=== PATIENT | female | born 1940 | race Asian ===

== ENCOUNTER → 2018-01-03 | Outpatient (CLI) | payer MEDICARE ==
[2018-01-03 10:57] LABS: ABG PCO2 37 mmHg (41-51); ABG PH 7.49 (7.31-7.41); ABG PO2 97 mmHg (80-105)
[2018-01-03 10:58] LABS: ABG HCO3 28 mmol/L (23-28)
== END ==
LOC: RESP 09:38
PROVIDERS: ATTEND Internal Medicine Pulmonary Disease
DX: R91.1 Solitary pulmonary nodule (principal)
CPT/HCPCS: 36415; 82805; 94060; 94727; 94729

== ENCOUNTER 2018-02-15 06:00 | Inpatient (IN) | payer MEDICARE ==
[2018-02-14 10:54] LABS: BASOPHILS % 0.4 % (0.0-1.0); EOSINOPHILS % 0.5 % (0.0-6.0); HEMATOCRIT 37.4 % (34.2-44.1); HEMOGLOBIN 12.6 g/dL (12.0-16.0); LYMPHOCYTES # (AUTO) 1.7 (1.0-3.2); MEAN CORPUSCULAR HGB CONC 33.7 g/dL (31-35); MEAN CORPUSCULAR VOLUME 92.1 fL (81-99); MONOCYTES # (AUTO) 0.6 (0.2-0.8); MONOCYTES % 7.2 % (4.4-11.3); NEUTROPHILS # (AUTO) 5.4 (2.1-6.9); NEUTROPHILS % 69.6 % (38.7-80.0); PLATELET COUNT 297 x10e3/uL (140-360); RED BLOOD COUNT 4.06 x10e6/uL (3.6-5.1); RED CELL DISTRIBUTION WIDTH 11.8 % (11.7-14.4)
[2018-02-14 11:30] LABS: ANION GAP 15.3 mmol/L (8-16); BLOOD UREA NITROGEN 13 mg/dL (7-26); BUN/CREATININE RATIO 18 (6-25); CALCIUM 9.6 mg/dL (8.4-10.2); CARBON DIOXIDE 27 mmol/L (22-29); CHLORIDE 93 mmol/L (98-107); CREATININE, SERUM 0.74 mg/dL (0.57-1.11); EST GLOMERULAR FILTRATION RATE > 60 ML/MIN (60-); GLUCOSE 121 mg/dL (74-118); POTASSIUM 4.3 mmol/L (3.5-5.1); SODIUM 131 mmol/L (136-145)
--- NOTE | 2018-02-14 11:46 | Diagnostic Imaging Report ---
EXAMINATION: PA and lateral views of the chest. COMPARISON: None CLINICAL HISTORY: Preoperative study for hip replacement DISCUSSION: Lungs are well-inflated area no focal airspace consolidation, pleural effusion, or pneumothorax. Tortuous thoracic aorta with atherosclerotic calcification. Normal heart size. No pulmonary edema. No acute osseous abnormality. IMPRESSION: No acute cardiopulmonary abnormalities. Signed by: Dr. Tushar Connolly M.D. on 02/14/2018 11:43 AM
[~2018-02-15] VITALS: Ht 157.5 cm; Wt 61.9 kg
[~2018-02-15 06:00] MED LIST: CALTRATE PO; COQ-10 PO; FISH OIL PO; GERITOL COMPLE1 EACH PO; LEVOTHYROXINE75 MCG PO; LOSARTAN POTAS100 MG PO; METFORMIN HCL500 MG PO; METOPROLOL SUCC25 MG PO; OMEPRAZOLE40 MG PO; SIMVASTATIN20 MG PO
[2018-02-15] MEDS ORDERED: DEXAMETHASONE SOD PHOS 10 MG/1 ML VIAL ONE (06:23)
[2018-02-15] MEDS ORDERED: GABAPENTIN 300 MG CAP ONE (06:23)
[2018-02-15] MEDS ORDERED: CEFAZOLIN SOD 2 GM/D5W 50ML 50 ML IV ONE (06:23)
[2018-02-15] MEDS ORDERED: CELECOXIB 200 MG CAP ONE (06:23)
[2018-02-15] MEDS ORDERED: ROPIVACAINE 246.25 MG, EPINEPHRINE HCL 1:1000 0.5 MG, CLONIDINE HCL 0.08 MG, KETOROLAC ... INJ ONE ×5 (07:30)
[2018-02-15] MEDS ORDERED: TRANEXAMIC ACID 1,000 MG/10 ML ML ONE (07:51)
[2018-02-15] MEDS ORDERED: BACITRACIN 50,000 UNIT VIAL ONE (07:52)
[2018-02-15] MEDS ORDERED: BUPIVACAINE 7.5MG/ML /DEXTROSE 82.5MG/ML 2 ML AMP INJ ONE (08:48)
[2018-02-15] MEDS ORDERED: LIDOCAINE HCL 2% LOCAL 20 ML VIAL ONE (08:52)
[2018-02-15] MEDS: SODIUM CHLORIDE 0.9% 1000ML 1,000 ML IV SCH ×2 (09:57→19:57)
[2018-02-15] MEDS ORDERED: DOCUSATE SODIUM 100 MG CAP PO PRN (10:00)
[2018-02-15] MEDS ORDERED: DIPHENHYDRAMINE HCL INJ 50 MG/ML VIAL IM/IV PRN (10:00)
[2018-02-15] MEDS ORDERED: HYDROCODONE/APAP 7.5MG-325MG 1 EA TAB PO PRN (10:00)
[2018-02-15] MEDS ORDERED: KETOROLAC TROMETHAMINE 30 MG/ML VIAL IV PRN (10:00)
[2018-02-15] MEDS ORDERED: HYDROCODONE/APAP 5MG-325MG TAB PO PRN (10:00)
[2018-02-15] MEDS ORDERED: ACETAMINOPHEN 650 MG SUPP PR PRN (10:00)
[2018-02-15] MEDS ORDERED: PROMETHAZINE HCL (IM) 25 MG/ML VIAL IM PRN (10:00)
[2018-02-15] MEDS ORDERED: ONDANSETRON HCL INJ 2 MG/ML VIAL IV PRN (10:00)
[2018-02-15 10:44] VITALS: BP 159/67
[2018-02-15 11:00] VITALS: BP 159/67
--- NOTE | 2018-02-15 11:30 | Diagnostic Imaging Report ---
PROCEDURE:X-RAY PELVIS, AP VIEW COMPARISON:None. INDICATIONS:POST OP TOTAL HIP SURGERY FINDINGS: Left hip replacement with acetabular cup and femoral ball in good position. Air and surgical geetha are noted. The left hip joint space narrowing is noted. CONCLUSION: Status post left total hip replacement. Ricci Blanca D.O. Dictated by: Ricci Blanca D.O. on 02/15/2018 at 11:38 Electronically approved by: Ricci Blanca D.O. on 02/15/2018 at 11:38
[2018-02-15] MEDS: ACETAMINOPHEN 1000 MG/100 ML IV SCH ×2 (13:41→18:14)
[2018-02-15] MEDS ORDERED: CEFAZOLIN SOD 1 GM/D5W 50ML 50 ML IV SCH (14:00)
--- NOTE | 2018-02-15 14:29 | Operative Report ---
DATE OF PROCEDURE: February 15, 2018 HEALTH DIRECTOR: Devan Dotson PA-C The patient was brought to the operating room for induction of anesthesia. Throughout this case, my PA's assistance was necessary for retraction of soft tissue and positioning of the extremity. This allows for efficient and technically successful execution of the operation and is considered medically necessary. PREOPERATIVE DIAGNOSIS: Osteoarthritis, left hip. POSTOPERATIVE DIAGNOSIS: Osteoarthritis, left hip. PROCEDURE: Left total hip arthroplasty. INDICATIONS: The patient is a 77-year-old lady who has advanced osteoarthritis in her left hip. She has failed conservative management and would like to proceed with a left total hip replacement. The risks and benefits of the surgery have been explained. She states she understands and wishes to proceed. DESCRIPTION OF PROCEDURE: The patient was brought to the operating room and placed under spinal anesthetic. She received prophylactic antibiotics and tranexamic acid in the holding area. She was positioned in the right lateral decubitus position. Her left hip was prepped and draped in a sterile manner. A preoperative time out was performed. A posterior approach was made to the left hip. Hemostasis was obtained with electrocautery. Care was taken to avoid injury to the sciatic nerve. A Charnley self-retraining retractor was placed. The posterior capsule was exposed and released. The hip was dislocated, and an oscillating saw was used to resect the femoral head. Complete loss of articular cartilage in the dome of the femoral head was noted. Acetabular retractors were placed. A [employer] system was used throughout the case. The true floor of the acetabulum was established. The socket was sequentially reamed up to 53 mm. This accomplished bleeding hemispherical cancellous bone. Two subchondral cysts were debrided with a curved curet. The hip was thoroughly irrigated with a shower-tip pulsatile lavage. A [employer] OsseoTi socket with a 54 mm outer diameter was impacted into place. Excellent fixation was obtained. The hip was further irrigated, and a highly crosslink polyethylene liner with no posterior elevation and a 36 mm inner diameter was seated. Care was taken to make sure that there was no evidence of soft-tissue interposition. A portion of a 100-mL premixed pericapsular injection was placed around the soft tissue. The socket was packed with moistly soaked lap sponge, and attention was directed towards the proximal femur. A box cutting osteotome and taper pin reamer were used to establish entry to the femoral canal. The [employer] Taperloc broaches were impacted. A size 8 stem had good canal fill and stability. Trial reductions were performed. The patient was noted to have excellent stability and soft-tissue balancing. The trial implants were removed. The remainder of the injection was placed around the more superficial tissue. The implants were seated. A 36-mm ceramic head was seated. A final reduction was performed. The hip was further irrigated. The posterior capsule was carefully repaired with interrupted #2 Ethibond. The gluteal fascia was closed with #2 Ethibond. The skin was closed with subcuticular Vicryl and geetha. A sterile Aquacel bandage was applied. The patient was transported to the recovery room in stable condition. Blood loss was approximately 50 mL. All needle and sponge counts were correct. Job#: [id number]
[2018-02-15 16:00] VITALS: BP 128/84
[2018-02-15] MEDS: CEFAZOLIN SOD 1 GM VIAL IV SCH (16:03)
[2018-02-15] MEDS ORDERED: CELECOXIB 100 MG CAP PO SCH (17:00)
[2018-02-15] MEDS: ASPIRIN 325 MG TAB PO SCH (17:30)
[2018-02-15] MEDS: CELECOXIB 200 MG CAP PO SCH (17:30)
[2018-02-15] MEDS ORDERED: EPHEDRINE SULFATE INJ 50 MG/10 ML SYR ONE (17:38)
[2018-02-15] MEDS ORDERED: FENTANYL CITRATE/PF 100MCG/2 ML INJ ONE (18:06)
[2018-02-15] MEDS ORDERED: MIDAZOLAM HCL 2 MG/2 ML VIAL ONE (18:06)
[2018-02-15 20:00] VITALS: BP 125/68
[2018-02-15] MEDS ORDERED: ZOLPIDEM TARTRATE 5 MG TAB PO PRN (21:00)
[2018-02-15] MEDS ORDERED: SIMVASTATIN 20 MG TAB PO SCH (21:00)
[2018-02-15 21:07] VITALS: BP 125/68
[2018-02-15] MEDS: METFORMIN HCL 500 MG TAB PO SCH (21:46)
[2018-02-16] VITALS: BP 140/65
[2018-02-16] MEDS: ACETAMINOPHEN 1000 MG/100 ML IV SCH ×2 (00:45→06:39)
[2018-02-16] MEDS: CEFAZOLIN SOD 1 GM VIAL IV SCH ×2 (01:00→08:38)
[2018-02-16 04:00] VITALS: BP 159/70
[2018-02-16] MEDS: SODIUM CHLORIDE 0.9% 1000ML 1,000 ML IV SCH (05:57)
[2018-02-16] MEDS ORDERED: LEVOTHYROXINE SODIUM 75 MCG TAB PO SCH (06:00)
[2018-02-16 06:02] LABS: HEMATOCRIT 30.8 % (34.2-44.1); HEMOGLOBIN 10.6 g/dL (12.0-16.0)
--- NOTE | 2018-02-16 07:19 | Consultation ---
DATE OF CONSULTATION: This is a patient of Dr. Haja Hitchcock who comes in for left hip pain, status post left hip arthroplasty. Medical consultation for thyroid disease, high blood pressure and diabetes. PAST MEDICAL HISTORY: As mentioned above. SOCIAL HISTORY: No ETOH. No drug abuse. Never a smoker. FAMILY HISTORY: Noncontributory. CURRENT MEDICATIONS 1. Levothyroxine 75 mcg. 2. Losartan 100 mg. 3. Metformin 500 mg. 4. Metoprolol 25 mg twice a day. 5. Omeprazole. 6. Mnze-xhr-soimdol vitamins. ALLERGIES: ALLERGIC TO IODINE AND IODINE PRODUCTS. REVIEW OF SYSTEMS: Negative for chest pain or shortness of breath. No nausea, vomiting or diarrhea. No constipation or rectal bleeding. Left hip pain is controlled by medications at this time. PHYSICAL EXAMINATION GENERAL: The patient is alert and oriented times 3. HEENT: Normocephalic and atraumatic. Pupils equal, round and reactive to light and accommodation. CV: S1 and S2 normal. Regular rate and rhythm. ABDOMEN: Nontender and nondistended. EXTREMITIES: Wound of the hip normal. Clean and dry. ASSESSMENT: Hip osteoarthritis, status post left hip arthroplasty. The patient is doing well. Will restart her home medications for her thyroid condition, for diabetes and also for hypertension. The patient has had extensive cardiac clearance. The patient was cleared for hip surgery. The patient's stress test was normal. Echo showed an atrial fibrillation of about 56%. Will watch her fluid intake, and also watch her electrolytes closely. Blood pressure will be monitored, and also diabetes will be controlled with insulin sliding scale. Postoperative anticoagulation for deep venous thrombosis prophylaxis has been instituted. Further recommendations per clinical course. Will continue to monitor the patient along with ortho. Job#: [id number] PEG
[2018-02-16] MEDS: ASPIRIN 325 MG TAB PO SCH (08:38)
[2018-02-16] MEDS: CELECOXIB 200 MG CAP PO SCH (08:38)
[2018-02-16] MEDS: METFORMIN HCL 500 MG TAB PO SCH (08:38)
[2018-02-16] MEDS ORDERED: METOPROLOL SUCCINATE 25 MG TAB XL PO SCH (09:00)
[2018-02-16] MEDS ORDERED: PANTOPRAZOLE SOD 40 MG TABEC PO SCH (09:00)
[2018-02-16] MEDS ORDERED: LOSARTAN POTASSIUM 100 MG TAB PO SCH (09:00)
[2018-02-16] MEDS ORDERED: ACETAMINOPHEN 1000 MG/100 ML IV PRN (10:00)
[2018-02-16 10:02] VITALS: BP 157/82
[2018-02-16] MEDS ORDERED: LOVENOX40 MG/0.4 SC (12:01)
[2018-02-16] MEDS ORDERED: ENOXAPARIN SOD INJ 40 MG/0.4 ML SYR SC SCH (17:00)
== END 2018-02-16 14:06 | disposition home health service (06) | DRG 470 ==
LOC: OR 06:00 → PACU V 09:59 → MED/SURG 10:48
PROVIDERS: ADMIT Specialist; ATTEND Specialist
PROC: 0SRB04A Replacement of Left Hip Joint with Ceramic on Polyethylene Synthetic Substitute, Uncemented, Open Approach (ICD-10-PCS; principal; 2018-02-15 08:30)
DX: M16.0 Bilateral primary osteoarthritis of hip (principal); I10 Essential (primary) hypertension; E11.9 Type 2 diabetes mellitus without complications; Z79.4 Long term (current) use of insulin
CPT/HCPCS: 36415; 71046; 72170; 80048; 82948; 85014; 85018; 85025; 86850; 86900; 86920; J0171; J0690; J1100; J1650; J1885; J2001; J2250; J2405; J2795; J7030

== ENCOUNTER 2018-02-22 15:08 | Inpatient (IN) | payer MEDICARE, OTHER ==
[~2018-02-22] VITALS: Ht 157.5 cm; Wt 55.8 kg
[~2018-02-22 15:08] MED LIST changes: +LOVENOX40 MG/0.4 SC
[2018-02-22] MEDS ORDERED: ONDANSETRON HCL 4 MG ORAL DISINTEGRATING TAB ONE (15:21)
[2018-02-22] MEDS ORDERED: ONDANSETRON HCL 4 MG ORAL DISINTEGRATING TAB PO ONE ×2 (15:30→16:00)
[2018-02-22 17:07] LABS: BASOPHILS % 0.3 % (0.0-1.0); EOSINOPHILS % 0.2 % (0.0-6.0); HEMATOCRIT 31.2 % (34.2-44.1); LYMPHOCYTES % 15.1 % (18.0-39.1); MEAN CORPUSCULAR HEMOGLOBIN 30.8 pg (28-32); MEAN CORPUSCULAR HGB CONC 35.3 g/dL (31-35); MEAN CORPUSCULAR VOLUME 87.4 fL (81-99); MONOCYTES # (AUTO) 0.6 (0.2-0.8); MONOCYTES % 8.6 % (4.4-11.3); NEUTROPHILS # (AUTO) 4.9 (2.1-6.9); NEUTROPHILS % 74.7 % (38.7-80.0); PLATELET COUNT 385 x10e3/uL (140-360); RED BLOOD COUNT 3.57 x10e6/uL (3.6-5.1); RED CELL DISTRIBUTION WIDTH 11.3 % (11.7-14.4)
[2018-02-22 17:16] LABS: BILIRUBIN,URINE NEGATIVE (NEGATIVE); CLARITY,URINE SL CLOUDY (CLEAR); COLOR,URINE YELLOW (YELLOW); KETONES,URINE 1+ (NEGATIVE); LEUKOCYTE ESTERASE ,URINE NEGATIVE (NEGATIVE); NITRITE,URINE NEGATIVE (NEGATIVE); PROTEIN,URINE DIPSTICK 2+ (NEGATIVE); URINE UROBILINOGEN 1 mg/dL (0.2 - 1)
[2018-02-22 17:29] LABS: ALANINE AMINOTRANSFERASE 31 IU/L (0-55); ALBUMIN 3.7 g/dL (3.5-5.0); ALKALINE PHOSPHATASE 105 IU/L (40-150); ANION GAP 16.8 mmol/L (8-16); BLOOD UREA NITROGEN 9 mg/dL (7-26); BUN/CREATININE RATIO 14 (6-25); CALCIUM 9.4 mg/dL (8.4-10.2); CARBON DIOXIDE 24 mmol/L (22-29); CHLORIDE 79 mmol/L (98-107); CREATININE, SERUM 0.65 mg/dL (0.57-1.11); EST GLOMERULAR FILTRATION RATE > 60 ML/MIN (60-); GLUCOSE 149 mg/dL (74-118); LIPASE 8 U/L (8-78); POTASSIUM 3.8 mmol/L (3.5-5.1)
[2018-02-22 17:31] LABS: SODIUM 116 mmol/L (136-145)
[2018-02-22 17:36] LABS: AMORPHOUS SEDIMENT,URINE MANY (FEW); BACTERIA,URINE MODERATE /HPF; RBC,URINE 0-5 /HPF (0-5)
--- NOTE | 2018-02-22 17:38 | Diagnostic Imaging Report ---
Exam: Abdominal radiograph supine and upright History: Abdominal pain, nausea and vomiting Comparison: None. Findings: Mildly dilated loops of small bowel within the abdomen measuring up to 3.3 cm. Air present distally throughout the colon. Impression: Mildly dilated loops of small bowel. Signed by: Dr. Oleg Mackay M.D. on 02/22/2018 5:35 PM
[2018-02-22] MEDS ORDERED: SODIUM CHLORIDE 0.9% 1000ML 1,000 ML IV SCH (17:45)
[2018-02-22] MEDS ORDERED: DEXAMETHASONE SOD PHOS 10 MG/1 ML VIAL IV ONE (18:45)
[2018-02-22] MEDS ORDERED: DIPHENHYDRAMINE HCL INJ 50 MG/ML VIAL IV ONE (18:45)
[2018-02-22] MEDS ORDERED: METOCLOPRAMIDE HCL 10 MG/2ML VIAL IV ONE (18:45)
[2018-02-22] MEDS ORDERED: ZOFRAN ODT4 MG SL (19:31)
[2018-02-22] MEDS ORDERED: NORCO 7.5-3251 EACH PO (19:31)
--- NOTE | 2018-02-22 19:33 | Diagnostic Imaging Report ---
EXAMINATION: Head CT without contrast. HISTORY:Headache and loss of vision in right eye. COMPARISON:None. TECHNIQUE: Multidetector axial images were obtained from the foramen magnum to the vertex without contrast. The images were reconstructed using brain and bone algorithms. Thin section brain images were reformatted into coronal and sagittal planes. Dose modulation, iterative reconstruction, and/or weight based adjustment of the mA/kV was utilized to reduce the radiation dose to as low as reasonably achievable. Intravenous contrast: None IMAGE QUALITY: Acceptable. FINDINGS: Skull/scalp: No lytic or blastic. lesions. No surgical changes. Parenchyma: Nonspecific bilateral frontoparietal patchy white matter hypodensity are likely related to small vessel ischemic changes. No acute hemorrhage, mass or acute major vascular territorial infarct. Arteries: No density suggestive of thrombosis. Dural sinuses: No abnormal density suggestive of thrombosis. Ventricles: Mild compensated dilatation due to volume loss. No hydrocephalus. Extra-axial spaces: No abnormal density. Brain volume: Normal for age. Craniocervical junction: No mass, Chiari malformation, or basilar invagination. Sella: No mass. Paranasal/mastoid sinuses: Imaged portions unremarkable. IMPRESSION: 1. No acute intracranial abnormality, particularly no acute hemorrhage, mass or acute major vascular territorial infarct. 2. Moderate supratentorial white matter microvascular ischemic changes. 3. Generalized age-related cerebral volume loss. Signed by: Dr. Alisha Osman M.D. on 02/22/2018 7:30 PM
[2018-02-22] MEDS ORDERED: SODIUM CHLORIDE 0.9% 1000ML 1,000 ML IV STA (19:48)
[2018-02-22] MEDS ORDERED: MORPHINE SULFATE 2 MG/ML SYR IV PRN (20:30)
[2018-02-22] MEDS ORDERED: DIPHENHYDRAMINE HCL INJ 50 MG/ML VIAL IV PRN (20:30)
[2018-02-22] MEDS ORDERED: ONDANSETRON HCL INJ 2 MG/ML VIAL IV PRN (20:30)
[2018-02-22 20:54] LABS: ANION GAP 16.8 mmol/L (8-16); BLOOD UREA NITROGEN 8 mg/dL (7-26); BUN/CREATININE RATIO 13 (6-25); CALCIUM 8.8 mg/dL (8.4-10.2); CARBON DIOXIDE 19 mmol/L (22-29); CHLORIDE 86 mmol/L (98-107); CREATININE, SERUM 0.62 mg/dL (0.57-1.11); EST GLOMERULAR FILTRATION RATE > 60 ML/MIN (60-); GLUCOSE 132 mg/dL (74-118); MAGNESIUM 1.2 MG/DL (1.3-2.1); OSMOLALITY,SERUM 239 mOsm/kg (278-305); POTASSIUM 3.8 mmol/L (3.5-5.1)
[2018-02-22] MEDS ORDERED: DEXTROSE 50% SYRINGE 50 ML IV PRN (21:00)
[2018-02-22 21:05] LABS: SODIUM 118 mmol/L (136-145)
[2018-02-22 21:09] LABS: CREATINE KINASE 195 IU/L (29-168)
[2018-02-22] MEDS ORDERED: LATANOPROST(OPTH) 2.5 ML BTL OD ONE (21:43)
[2018-02-22] MEDS ORDERED: ACETAZOLAMIDE SODIUM 500 MG/VIAL IV ONE (21:45)
--- NOTE | 2018-02-22 21:49 | Diagnostic Imaging Report ---
EXAM: CT CHEST WO INDICATION: Pulmonary mass/nodule COMPARISON: PA and lateral view of the chest February 22, 2018 TECHNIQUE: Multidetector CT scanning of the chest was performed. Coronal and sagittal multiplanar reformations were obtained. Dose modulation, iterative reconstruction, and/or weight based adjustment of the mA/kV was utilized to reduce the radiation dose to as low as reasonably achievable. Routine protocol performed. IV Contrast: None CTDIvol has been reviewed. It is below the limits set by the Radiation Protocol Committee (RPC). FINDINGS: LUNGS AND AIRWAYS: The trachea and major bronchi are unremarkable. Biapical scarring. Pleural based irregular nodule measuring 1.4 cm right lower lobe (image 29, series 3). PLEURA: No effusions or pneumothorax. HEART, MEDIASTINUM, VESSELS: Normal. No mediastinal lymphadenopathy. UPPER ABDOMEN: Normal MUSCULOSKELETAL: No acute findings. IMPRESSION: Indeterminate 1.4 cm pleural-based right lower lobe nodule. Recommend correlation with any prior imaging not available at this facility or PET/CT. Signed by: Dr. Shital Covarrubias M.D. on 02/22/2018 9:46 PM
[2018-02-22] MEDS ORDERED: PILOCARPINE HCL(OPTH) 15 ML LIQD OP SCH (22:00)
[2018-02-22] MEDS: INSULIN REGULAR, HUMAN 100 UNIT/1 ML 3ML VIAL SQ SCH (22:12)
[2018-02-22] MEDS: PILOCARPINE HCL(OPTH) 15 ML LIQD OP SCH ×2 (22:20→23:30)
[2018-02-22] MEDS: BRIMONIDINE/TIMOLOL (OPTH SOLN 5 ML DRPETTE OP SCH ×2 (22:20→23:30)
[2018-02-22] MEDS: LATANOPROST(OPTH) 2.5 ML BTL OD SCH (23:46)
[2018-02-22] MEDS: SODIUM CHLORIDE 0.9% 1000ML 1,000 ML IV SCH (23:51)
[2018-02-22] MEDS: METOCLOPRAMIDE HCL 10 MG/2ML VIAL IV SCH (23:51)
[2018-02-23] VITALS (7 sets, daily range): BP systolic 138–180; BP diastolic 74–93
[2018-02-23] MEDS: SODIUM CHLORIDE 0.9% 1000ML 1,000 ML IV SCH (05:15)
[2018-02-23] MEDS: LATANOPROST(OPTH) 2.5 ML BTL OD SCH (05:35)
[2018-02-23 05:40] LABS: BASOPHILS % 0.2 % (0.0-1.0); HEMATOCRIT 31.2 % (34.2-44.1); HEMOGLOBIN 10.9 g/dL (12.0-16.0); LYMPHOCYTES # (AUTO) 0.6 (1.0-3.2); LYMPHOCYTES % 12.2 % (18.0-39.1); MEAN CORPUSCULAR HEMOGLOBIN 31.5 pg (28-32); MEAN CORPUSCULAR HGB CONC 34.9 g/dL (31-35); MEAN CORPUSCULAR VOLUME 90.2 fL (81-99); MONOCYTES # (AUTO) 0.1 (0.2-0.8); MONOCYTES % 1.9 % (4.4-11.3); NEUTROPHILS # (AUTO) 4.1 (2.1-6.9); NEUTROPHILS % 84.7 % (38.7-80.0); PLATELET COUNT 407 x10e3/uL (140-360); RED BLOOD COUNT 3.46 x10e6/uL (3.6-5.1); RED CELL DISTRIBUTION WIDTH 11.6 % (11.7-14.4)
[2018-02-23] MEDS: METOCLOPRAMIDE HCL 10 MG/2ML VIAL IV SCH ×3 (05:46→17:00)
[2018-02-23 05:47] LABS: CREATINE KINASE 226 IU/L (29-168)
[2018-02-23] MEDS ORDERED: ACETAZOLAMIDE SODIUM 500 MG/VIAL IV NR (06:00)
[2018-02-23] MEDS ORDERED: PILOCARPINE HCL(OPTH) 15 ML LIQD OP SCH (06:00)
[2018-02-23 06:31] LABS: ALANINE AMINOTRANSFERASE 28 IU/L (0-55); ALBUMIN 3.4 g/dL (3.5-5.0); ALKALINE PHOSPHATASE 106 IU/L (40-150); ANION GAP 12.9 mmol/L (8-16); BLOOD UREA NITROGEN 9 mg/dL (7-26); BUN/CREATININE RATIO 14 (6-25); CALCIUM 9.3 mg/dL (8.4-10.2); CARBON DIOXIDE 21 mmol/L (22-29); CHLORIDE 101 mmol/L (98-107); CHOL/HDL RATIO 2.7 (3.0-3.6); CHOLESTEROL 141 MD/DL (0-199); CREATININE, SERUM 0.66 mg/dL (0.57-1.11); EST GLOMERULAR FILTRATION RATE > 60 ML/MIN (60-); GLUCOSE 169 mg/dL (74-118); HDL CHOLESTEROL 53 MG/DL (40-60); LDL CHOLESTEROL 72 MG/DL (60-130); POTASSIUM 3.9 mmol/L (3.5-5.1); SODIUM 131 mmol/L (136-145); TRIGLYCERIDES 79 MG/DL (0-149)
[2018-02-23] MEDS ORDERED: ONDANSETRON HCL 4 MG ORAL DISINTEGRATING TAB SL PRN (07:15)
[2018-02-23 07:25] LABS: ANISOCYTOSIS MODERATE; EOSINOPHILS % (MANUAL) 1 % (0-7); LYMPHOCYTES % (MANUAL) 13 % (19-48); MONOCYTES % (MANUAL) 2 % (3.4-9.0); NEUTROPHILS % (MANUAL) 84 % (40-74)
[2018-02-23 07:26] LABS: HYPOCHROMASIA MODERATE; ROULEAU FEW; SPHEROCYTES FEW
[2018-02-23] MEDS: INSULIN REGULAR, HUMAN 100 UNIT/1 ML 3ML VIAL SQ SCH ×4 (07:30→20:22)
--- NOTE | 2018-02-23 07:43 | History and Physical ---
A 77-year-old female comes in with right eye pain. HISTORY OF PRESENT ILLNESS: This is Ms. Diane Chong who is a 77-year-old lady with a recent history of left hip arthroplasty. Was in her usual state of health until she had right-sided pain in the orbital area. Described her pain as 10/10 in intensity and got worse, and was sudden in onset. The patient came into the emergency room, and was diagnosed with right eye pain with anisocoria and dilated pupil. Admitted for possible glaucoma and given some pilocarpine and also a consult with Dr. Richey. The patient also has hyponatremia. The patient is on fluids at this point in time. PAST MEDICAL HISTORY: History of hypothyroidism, history of hypertension, history of hyperlipidemia, history of recent right hip arthroplasty. The patient has a history of right lung nodule, which has been followed by Dr. Adames and has been documented as benign at this point in time, and has been followed up by Dr. Adames. History of hypothyroidism. SURGICAL HISTORY: The patient has no other surgical history present. MEDICATIONS: She takes at home are: 1. Levothyroxine 75 mcg daily. 2. Metoprolol 25 mg ER daily. 3. Zofran 4 mg. 4. Simvastatin 20 mg. 5. Hydrocortisone 0.5 mg q.6 h. 6. Lovenox 40 mg for DVT prophylaxis. REVIEW OF SYSTEMS: Negative for chest pain. No shortness of breath. No nausea, vomiting or diarrhea. No constipation or rectal bleeding. Positive for eye pain as mentioned above. No diplopia. Positive for blurry vision on the right side and film on the right side. PHYSICAL EXAMINATION GENERAL: The patient is alert and oriented times 3. The pain has come down after pilocarpine drops. VITAL SIGNS: Temperature is 98.4, pulse 79, respirations 16, blood pressure 177/88. HEENT: Normocephalic and atraumatic. The patient's right eye is dilated and also suggestive of cataract. Pupils are moving and reacting to light and accommodation. CV: S1 and S2. Normal rate and rhythm. ABDOMEN: Nontender and nondistended. EXTREMITIES: No clubbing. No cyanosis. No edema. Left hip wound looking good without any drainage. LABORATORY VALUES: Significant for white count of 6.49. is 7.47. Hemoglobin is 11, hematocrit of 31.2. Chemistries shows sodium of 131, BUN 12.9, creatinine of 21. The patient's initial sodium was 116, and has gone up to 131 at this time. The patient's BUN was 9 and creatinine 0.65. Glucose was 149, 161, 149, and 132 later. Today, the patient's sodium is 131, glucose 169. CK was 195 and CK-MB was 3.2. Troponin was less than 0.01. LDL was 72 and ratio was 2.7. STUDIES: CT of the chest shows indeterminate 1.5 cm pleural based right lower nodule, which has been followed by Dr. Adames. CT of the brain shows no acute intracranial abnormalities. Generalized age-related volume loss and moderate supratentorial white matter microvascular changes. X-ray of the abdomen shows mildly dilated loops of small bowel. ASSESSMENT 1. 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 2. Hyponatremia: Probably volume depleted. The patient is much better. Sodium is 131. Hyponatremia has been resolved. 3. History of hypertension: Will restart her home medications. 4. History of recent hip surgery: Will continue hydrocodone. Will continue to monitor the patient. After ophthalmological evaluation, the patient can be discharged if okay with the consultants. Further recommendations per clinical course. Will continue to monitor the patient along with the consultants. Job#: [id number] PEG
[2018-02-23] MEDS: METOPROLOL SUCCINATE 25 MG TAB XL PO SCH (08:21)
[2018-02-23] MEDS ORDERED: STERILE WATER IV SCH (08:45)
[2018-02-23] MEDS ORDERED: SODIUM CHLORIDE 0.45% IV SCH (08:45)
[2018-02-23] MEDS ORDERED: HYDROCODONE/APAP 7.5MG-325MG 1 EA TAB PO PRN (08:45)
[2018-02-23] MEDS ORDERED: LEVOTHYROXINE SODIUM 75 MCG TAB PO SCH (09:00)
[2018-02-23] MEDS: PILOCARPINE HCL(OPTH) 15 ML LIQD OP SCH ×2 (09:02→16:59)
[2018-02-23] MEDS: BRIMONIDINE/TIMOLOL (OPTH SOLN 5 ML DRPETTE OP SCH ×2 (09:02→16:59)
--- NOTE | 2018-02-23 09:26 | Consultation ---
DATE OF CONSULTATION: February 23, 2018 REQUESTING PHYSICIAN: Dr. Ramirez REASON FOR CONSULTATION: Hyponatremia. Thank you for allowing us to participate in Ms. Chong's care. This 77-year-old female underwent left hip arthroplasty recently about a week ago. Had worsening pain. She had not been eating or drinking. Subsequently came with pain on the right side orbital area. There was consideration for acute angle glaucoma. Got some Diamox. Got some fluids during admission. Now doing well. The creatinine was reasonable at 0.65. Her sodium was only 116 yesterday. It has gone up quite rapidly with IV fluids to 131, which is slightly above the recommended limits of correction. Would favor about 10 mEq/L per day. She also has a history of right lung nodule. Urine osmolarity was elevated; but if she were rehydrated, this is likely appropriate ADH secretion. PAST HISTORY 1. Hypothyroidism. 2. Hypertension. 3. Dyslipidemia. 4. Right hip arthroplasty. 5. Possible benign lung nodule. HOME MEDICATIONS 1. Levothyroxine 75 mcg a day. 2. Hydrocortisone 0.5 mg q.6 h. 3. Simvastatin 20 mg a day. 4. Zofran 4 mg. 5. Metoprolol 25 mg a day. SOCIAL HISTORY: She does not use alcohol or smoke. FAMILY HISTORY: No kidney problems. REVIEW OF SYSTEMS HEENT: Had eye pain. NEURO: Had eye pain. GI: Decreased appetite. No nausea or vomiting. CARDIAC: No angina or syncope. MUSCULOSKELETAL: Left hip postop discomfort as expected, but she is able to ambulate. PHYSICAL EXAMINATION GENERAL: Sitting up, in no distress. VITALS: Temperature 97.9, heart rate 103, blood pressure 153/74. HEENT: Grossly atraumatic. NECK: No JVD. CHEST: Clear. Bilateral breath sounds are equal. CARDIAC: Normal heart tones. Rhythm sounds regular. ABDOMEN: Benign. EXTREMITIES: No edema. NEURO: Alert and appropriate. LABS: As noted. A; Hyponatremia- Sodium 116 yesterday at 4:25. By 4 a.m. this morning, it was already 131. - so I feel correction too rapid as we cannot ascertain how acutely the hyponatremia occurred min acidosis - Serum CO2 is 21, which she has been on IV fluids and got some Diamox. Urine osmolality was 124 consistent with ongoing ADH action. There were some protein and blood in the urine as well as bacteria. -pending cultures PLAN: Discontinue the normal saline. Change to half-NS at 100 mL an hour for 1 L. I think that should be adequate to slow down the rate of correction of the sodium. She appears to be handling this reasonably well. There are no mental status changes noted additionally. Get urine culture. Consider empiric antibiotics. Will follow along. JANIA GUNTER MD Job#: [id number] PAMELA GROSS
[2018-02-23] MEDS: SODIUM CHLORIDE 23.4% 38.5 MEQ in STERILE WATER IV SOLN 1,000 ML IV SCH ×2 (09:50→19:04)
[2018-02-23] MEDS ORDERED: LOSARTAN POTAS100 MG PO (14:58)
[2018-02-23] MEDS: METFORMIN HCL 500 MG TAB PO SCH (16:59)
[2018-02-23] MEDS ORDERED: ENOXAPARIN SOD INJ 40 MG/0.4 ML SYR SC SCH (17:00)
[2018-02-23 17:38] LABS: CREATINE KINASE 320 IU/L (29-168)
--- NOTE | 2018-02-23 17:57 | Consultation ---
DATE OF CONSULTATION: February 23, 2018 PULMONARY CONSULTATION REASON FOR CONSULTATION: Pulmonary nodule. HPI: Ms. Chong is a 77-year-old female. She presented to the emergency room with right eye pain, headache, and was found to be severely hyponatremic. She denies any complaints of chest pain, nausea vomiting. She has history of lung nodule which was 1.7 cm in July of 2017 and she follows up with Dr. Adames on a regular basis. Initially, Dr. Adames recommended a biopsy; however, she declined and she opted for followup which was being done. She feels better now. Her sodium level is up. Nephrology has been consulted and they are managing the sodium. REVIEW OF SYSTEMS: GENERAL: Denies any fever or chills. HEENT: Denies any head trauma. ENT denies any earache. CVS: Denies any chest pain. RESPIRATORY: Denies any shortness of breath. GI: Denies any nausea or vomiting. Rest of the review systems are negative except as in history of present illness. PAST MEDICAL HISTORY: Hypothyroidism, hypertension, hyperlipidemia. PAST SURGICAL HISTORY: Recent right hip arthroplasty. FAMILY AND SOCIAL HISTORY: She does not smoke and does not drink. PHYSICAL EXAMINATION: VITALS: Temperature 98.2, pulse of 81, blood pressure 160/89. Respiratory rate of 18. O2 sat 97% on room air. HEENT: Head traumatic and normocephalic. NECK: Supple. CHEST: Clear to auscultation bilaterally. No wheezing. HEART: S1 and S2 audible. ABDOMEN: Soft and nontender. EXTREMITIES: No clubbing cyanosis or edema. NEUROLOGIC: Awake, alert, oriented, no focal neurologic deficits. LABORATORY DATA: Sodium now is 131. When she came in it was 116. Potassium 3.8. Chloride 79. BUN 9, creatinine 0.6. Total bilirubin was 1.3. White count of 4.8, hemoglobin 10.9, platelets 407,000. IMAGING: Reviewed the CT scan of the chest. Film review is showing 1.4 cm pleural-based right lower lobe nodule, and also compared the CAT scan from the office CAT scan and office records were reviewed as well. The patient's nodule was 1.7 cm in July 2017. ASSESSMENT: Ms. Chong is a 77-year-old female who came in with severe headache and watering of the eyes, and found to be hyponatremic. No apparent cause. Nephrology has been consulted. The patient was not on diuretics. She has history of hypothyroidism. CURRENT PROBLEMS: Pleural-based nodule which has decreased in size and likely not malignant passes. Since the patient had presented with hyponatremia, paraneoplastic was a concern, but the nodule size has been decreased from 1.7 to 1.4 cm. I had a detailed discussion with the patient and also discussed with Dr. Adames. We will keep following the nodule with CT scan, the size changes and if the size and shape changes, then the patient will need biopsy. At this point, we will hold off on biopsy. I will send TSH and free T4. Thank you for this consult. Will continue to follow the patient along with you. Job#: [id number] JOANNE
[2018-02-23 18:16] LABS: FREE T4 (FREE THYROXINE) 0.97 ng/dL (0.9-1.8); THYROID STIMULATING HORMONE 6.02 uIU/mL (0.350-4.940)
[2018-02-23] MEDS ORDERED: SIMVASTATIN 20 MG TAB PO SCH (21:00)
[2018-02-24 00:18] VITALS: BP 134/74
[2018-02-24 03:44] VITALS: BP 140/75
[2018-02-24 05:10] LABS: ANION GAP 14.4 mmol/L (8-16); BLOOD UREA NITROGEN 12 mg/dL (7-26); BUN/CREATININE RATIO 19 (6-25); CALCIUM 9.4 mg/dL (8.4-10.2); CARBON DIOXIDE 18 mmol/L (22-29); CHLORIDE 97 mmol/L (98-107); CREATININE, SERUM 0.64 mg/dL (0.57-1.11); EST GLOMERULAR FILTRATION RATE > 60 ML/MIN (60-); GLUCOSE 130 mg/dL (74-118); POTASSIUM 3.4 mmol/L (3.5-5.1); SODIUM 126 mmol/L (136-145)
[2018-02-24] MEDS: METOCLOPRAMIDE HCL 10 MG/2ML VIAL IV SCH ×3 (05:23→11:45)
[2018-02-24] MEDS: SODIUM CHLORIDE 23.4% 38.5 MEQ in STERILE WATER IV SOLN 1,000 ML IV SCH (05:23)
[2018-02-24] MEDS ORDERED: LEVOTHYROXINE SODIUM 75 MCG TAB PO SCH (06:00)
[2018-02-24] MEDS ORDERED: POTASSIUM CHLORIDE 20 MEQ TAB CR PO STA (07:00)
[2018-02-24] MEDS: INSULIN REGULAR, HUMAN 100 UNIT/1 ML 3ML VIAL SQ SCH ×2 (08:30→11:30)
[2018-02-24] MEDS ORDERED: LOSARTAN POTASSIUM 100 MG TAB PO SCH (09:00)
[2018-02-24] MEDS ORDERED: SODIUM CHLORIDE 1 GM TAB PO SCH (09:00)
[2018-02-24] MEDS ORDERED: POTASSIUM CHLORIDE 10MEQ EA PO SCH (09:00)
[2018-02-24] MEDS ORDERED: SODIUM BICARBONATE 650 MG TAB PO SCH (09:00)
[2018-02-24] MEDS: METFORMIN HCL 500 MG TAB PO SCH (09:00)
[2018-02-24] MEDS: PILOCARPINE HCL(OPTH) 15 ML LIQD OP SCH (09:42)
[2018-02-24] MEDS: BRIMONIDINE/TIMOLOL (OPTH SOLN 5 ML DRPETTE OP SCH (09:42)
[2018-02-24] MEDS: METOPROLOL SUCCINATE 25 MG TAB XL PO SCH (09:43)
[2018-02-24 09:47] VITALS: BP 143/82
[2018-02-24 09:49] VITALS: BP 143/82
[2018-02-24 11:43] VITALS: BP 129/81
[2018-02-24] MEDS ORDERED: THERMOTABS PO (13:51)
--- NOTE | 2018-05-02 02:07 | Discharge Summary ---
The patient came in, status post left hip arthroscopy. Patient also on x-ray showed a lung nodule, consult with Dr. Broderick was done. Patient was asked to see Dr. Broderick back in the clinic to follow up with the lung nodule. She has history of glaucoma, which is better. A consult with Dr. Richey was done for eye pain. She did good for her hyponatremia which she originally came in. She was symptomatically better. The sodium was 126. Started the patient on some sodium tablets too. 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 Patient also was seen by Dr. Bailey, the street contractor. Patient also was given p.o. bicarb and discharged home in stable condition. FINAL DIAGNOSES: 1. Hyponatremia. 2. Syndrome of inappropriate antidiuretic hormone. 3. Acidosis. 4. Status post left total hip replacement. 5. Glaucoma. For further information, look in the chart. For medicines on discharge, look in the medical reconciliation sheet. The patient was asked to have fluid restriction, and also salt tablets were given to the patient. Follow up with the primary care physician and also with Dr. Bailey and Dr. Broderick for her lung nodule. JOSELITO JAEGER MD Job#: [id number]
== END 2018-02-24 15:00 | disposition home or self-care (01) | DRG 125 ==
LOC: ER 15:08 → ERHOLD 21:54 → IMCU 02-23 01:02
PROVIDERS: ADMIT Family Medicine; ATTEND Family Medicine
DX: H40.1110 Primary open-angle glaucoma, right eye, stage unspecified (principal); E87.1 Hypo-osmolality and hyponatremia; R91.1 Solitary pulmonary nodule; E03.9 Hypothyroidism, unspecified; E78.5 Hyperlipidemia, unspecified; Z96.641 Presence of right artificial hip joint; K52.9 Noninfective gastroenteritis and colitis, unspecified; E87.6 Hypokalemia; I10 Essential (primary) hypertension; Z79.52 Long term (current) use of systemic steroids; Z79.899 Other long term (current) drug therapy
CPT/HCPCS: 36415; 70450; 71250; 74022; 80048; 80053; 80061; 80329; 81001; 82550; 82553; 82947; 82948; 83605; 83690; 83735; 83930; 83935; 84295; 84300; 84439; 84443; 84481; 84484; 84520; 85025; 99284; J1100; J1200; J1650; J2270; J2405; J2765; J7030